=== PATIENT | female | born 1975 | race Two or more races ===

== ENCOUNTER 2024-05-26 12:14 | Emergency (ER) | payer MEDICAID, OTHER ==
[~2024-05-26] VITALS: Ht 157.5 cm; Wt 71.5 kg
[2024-05-26] MEDS: levoFLOXacin 250 MG TAB PO ONE (13:17)
[2024-05-26 13:21] VITALS: BP 149/66; PULSE 98; RESP 18; TEMP 98; O2SAT 97
--- NOTE | 2024-05-26 13:46 | ED.PDOC ---
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 Patient is currently asymptomatic but was told to come here for antibiotics. Chief Complaint: Abnormal LAB's Time Seen by MD: 12:49 Allergies: Coded Allergies: NO KNOWN ALLERGIES (Unverified , 05/26/24) Physical Exam General Appearance: No Apparent Distress, Normal HEENT: Normal ENT Inspection, Pharynx Normal, TMs Normal Neck: Full Range of Motion, Non-Tender, Normal, Normal Inspection Respiratory: Chest Non-Tender, Lungs Clear, No Accessory Muscle Use, No Respiratory Distress, Normal Breath Sounds Cardiovascular: No Edema, No JVD, No Murmur, No Gallop, Normal Peripheral Pulses, Regular Rate/Rhythm Breast Exam: Deferred Gastrointestinal: No Organomegaly, Non Tender, No Pulsatile Mass, Normal Bowel Sounds, Soft Genitalia: Deferred Pelvic: Deferred Rectal: Deferred Extremities: No calf tenderness, Normal capillary refill, Normal inspection, Normal range of motion, Non-tender, No pedal edema, 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 Was a procedure done?: No Differential Dx Considerations may include: ESBL urine X-Ray, Labs, Meds, VS Vital Signs Date Time Temp Pulse Resp B/P (MAP) Pulse Ox O2 Delivery O2 Flow Rate FiO2 05/26/24 13:21 98 18 97 Room Air* 0 21 05/26/24 13:21 98.0 98 17 149/66 (93) 97 98.0 Current Medications Medications (Trade) Dose Ordered Sig/Lorna Route Start Time Stop Time Status Last Admin Levofloxacin (Levaquin Tablet) 750 mg ONCE ONCE PO 05/26/24 13:00 05/26/24 13:01 DC 05/26/24 13:17 Time of 1ST Reevaluation: 14:14 Reevaluation 1ST: Unchanged Patient Education/Counseling: Diagnosis, Treatment Family Education/Counseling: No Family Present Departure 1 Departure Time of Disposition: 14:15 (Patient has ESBL in her urine that grew out on culture. Patient is asymptomatic we will treat patient with Levaquin.) Impression: Primary Impression: Acute cystitis Qualified Codes: N30.00 - Acute cystitis without hematuria Disposition: HOME / SELF CARE / HOMELESS Condition: Stable Additional Instructions: You have a urinary tract infection. You were prescribed antibiotics. Please take as directed. You can take Tylenol Motrin as needed for pain. It is important that he follow up with the regular doctor within 1 week to ensure you are doing better. If your symptoms worsen or you have any other concerns then please return to the emergency room. e-Prescriptions Levofloxacin Hemihydrate (LEVAQUIN 500 MG) 500 Mg Tab 750 MG PO DAILY for 7 Days, #11 TAB Prov: PANDA MI MD 05/26/24 Discharged With: Self Critical Care Note Critical Care Time?: No Stability Stability form required: No I personally scribed for PANDA MI MD ([email or web address]) on 05/26/24 at 13:46. Electronically submitted by Abby Lovett ([facility]). PANDA MI MD May 26, 2024 13:46
[2024-05-26] MEDS ORDERED: LEVO500T91 PO (14:16)
== END 2024-05-26 14:29 | disposition home or self-care (01) ==
LOC: ER 12:14
DX: N30.00 Acute cystitis without hematuria (principal); R79.89 Other specified abnormal findings of blood chemistry; N18.9 Chronic kidney disease, unspecified